=== PATIENT | male | born 1955 | race Caucasian/White ===

== ENCOUNTER 2018-07-17 07:24 | Emergency (ER) | payer BC ==
[2018-07-17 08:02] LABS: Absolute Lymphocytes (CBC) 0.6 K/uL (0.7-4.9); Absolute Monocytes 0.4 K/uL (0.1-1.3); Absolute Neutrophil 3.4 K/uL (1.8-8.0); Basophils % 1.2 % (0-1.3); Eosinophils % 3.8 % (0-4.4); Hematocrit 45.6 % (39.6-49.0); Lymphocytes % 12.7 % (15.3-44.8); MCH 32.5 pg (27.0-35.0); MCV 91.8 fL (80-100); MPV 8.6 fL (7.6-11.3); Monocytes % 8.7 % (3.3-12.3); RBC Red Blood Cell Count 4.97 M/uL (4.33-5.43)
[2018-07-17 08:14] LABS: BUN Blood Urea Nitrogen 14 mg/dL (7-18); Bicarbonate 29 mmol/L (21-32); Glucose Level 116 mg/dL (74-106); NT PRO-BNP 26 pg/mL (<125); Sodium Level 141 mmol/L (136-145); Troponin (Emerg Dept Use Only) < 0.02 ng/mL (0.0-0.045)
--- NOTE | 2018-07-17 08:30 | RAD REPORT ---
EXAM DESCRIPTION: RAD - Chest Single View - 07/17/2018 8:00 am CLINICAL HISTORY: Palpitations, diaphoretic COMPARISON: January 2014 portable chest TECHNIQUE: AP portable chest image was obtained 0742 hours . FINDINGS: Lungs are clear. Heart and vasculature are normal. No measurable pleural effusion and no p neumothorax. No acute bony abnormality seen. No acute aortic findings suspected. IMPRESSION: No acute cardiopulmonary process. No significant change from 2014 imaging.
--- NOTE | 2018-07-17 08:30 | RAD REPORT ---
EXAM DESCRIPTION: CT - Head Brain Wo Cont - 07/17/2018 8:07 am CLINICAL HISTORY: Diaphoretic, hypertensive, altered mental status COMPARISON: None. TECHNIQUE: Axial 5 mm thick images of the head were obtained without IV contrast. All CT scans are performed using dose optimization technique as appropriate and may include automated exposure control or mA/KV adjustment according to patient size. FINDINGS: No intracranial hemorrhage is present. No acute infarction changes seen. No abnormal extra -axial fluid collections. Ventricles are normal. There is a 2.5 centimeter round homogeneous hyperdense mass abutting the posterior falx and the dura overlying the left parietal lobe. No associated calcification. There is minimal mass effect on the ad jacent brain parenchyma. No edema in the left parietal lobe appreciated on CT imaging. No prior imagi ng is available. Most likely etiology is a benign meningioma. Mastoid air cells and visualized portions of the paranasal sinuses are clear. No acute bony findings. IMPRESSION: No intracranial hemorrhage. No cerebral edema or acute cortical based infarction. A 2.5 centimeter round dural abutting mass is present adjacent to the left parietal lobe. Meningioma is the most likely etiology and is probably unrelated to the acute clinical presentation. No emergent intracranial finding is evident. Follow-up outpatient contrast MRI study could be perform ed for full characterization.
--- NOTE | 2018-07-17 10:12 | EKG ---
Test Date: 2018-07-17 Test Time: 07:55:30 Cab Driver: AMANUEL MEASUREMENT RESULTS: Intervals: Rate: 63 PA: 172 QRSD: 84 QT: 390 QTc: 399 [place]: P: 35 PA: 172 QRS: 16 T: 40 INTERPRETIVE STATEMENTS: Normal sinus rhythm Normal ECG Compared to ECG 08/19/2014 10:05:54 No significant changes Electronically Signed On 07-17-18 10:11:45 [employer] by Chaitanya Forrester
--- NOTE | 2018-07-17 10:52 | RAD REPORT ---
EXAM DESCRIPTION: MRI - Brain W/Wo Cont - 07/17/2018 10:08 am CLINICAL HISTORY: Brain mass COMPARISON: July [address] TECHNIQUE: Axial, sagittal, and coronal magnetic images of the brain were obtained. 19 cc MultiHance administered intravenously FINDINGS: A 28 millimeter intensely enhancing mass abuts the posterior falx and left occipital/parie darcy convexity. There is enhancement of the the suspicious adjacent dura. The mass has iso to high sig nal on T2 weighted sequences. No surrounding edema is seen The ventricles are normal in caliber. Diffusion-weighted sequences do not demonstrate evidence of an acute infarction. No abnormal enhancement within the brain is seen. An extra-axial fluid collection is not noted. Fluid within the sinuses/mastoids is not seen. A mucus retention cyst is present within the right max illary sinus IMPRESSION: 28 millimeter which abuts the posterior falx and left cerebrum has the appearance of a meningioma. Surrounding edema is not seen
--- NOTE | 2018-07-17 11:16 | ER ---
Nurse's Notes [facility] Name: Chance Tian Age: 63 yrs Sex: Male : 1955 Arrival Date: 07/17/2018 Time: 07:27 Bed 8 Private MD: Diagnosis: Hypertension;Meningioma Presentation: 07/17 07:36 Presenting complaint: Patient states: "I became diaphoretic while eating breakfast, hb then I started to feel like I was going to pop out of my skin." Denies pain. Transition of care: patient was not received from another setting of care. Onset of symptoms was July 17, 2018. Risk Assessment: Do you want to hurt yourself or someone else? Patient reports no desire to harm self or others. Initial Sepsis Screen: Does the patient meet any 2 criteria? Yes Does the patient have a suspected source of infection? No. Patient's initial sepsis screen is negative. Care prior to arrival: None. 07:36 Acuity: MINE 3 hb 07:36 Method Of Arrival: Ambulatory hb Historical: - Allergies: 07:35 No Known Allergies; sg - PSHx: 07:35 Hernia repair; sg - Immunization history:: Adult Immunizations up to date. - Family history:: not pertinent. - Social history:: Smoking status: Patient/guardian denies using tobacco. - Ebola Screening: : No symptoms or risks identified at this time. - Hospitalizations: : No recent hospitalization is reported. Screenin:38 Abuse screen: Denies threats or abuse. Denies injuries from another. Nutritional hb screening: No deficits noted. Tuberculosis screening: No symptoms or risk factors identified. Fall Risk None identified. Assessment: 07:40 General: Appears in no apparent distress. Behavior is calm, cooperative. Pain: Denies hb pain. Neuro: Level of Consciousness is awake, alert, obeys commands, Oriented to person, place, time, situation. Cardiovascular: Heart tones S1 S2 present Capillary refill < 3 seconds Patient's skin is warm and dry. Respiratory: Airway is patent Trachea midline Respiratory effort is even, unlabored, Respiratory pattern is regular, symmetrical, Breath sounds are clear bilaterally. GI: No signs and/or symptoms were reported involving the gastrointestinal system. : No signs and/or symptoms were reported regarding the genitourinary system. EENT: No signs and/or symptoms were reported regarding the EENT system. Derm: Skin is intact, is healthy with good turgor, Skin is pink, warm \\T\\ dry. Musculoskeletal: No signs and/or symptoms reported regarding the musculoskeletal system. 08:30 Reassessment: Patient appears in no apparent distress at this time. Patient and/or hb family updated on plan of care and expected duration. Pain level reassessed. Patient is alert, oriented x 3, equal unlabored respirations, skin warm/dry/pink. 09:30 Reassessment: Patient appears in no apparent distress at this time. No changes from hb previously documented assessment. 10:30 Reassessment: Patient appears in no apparent distress at this time. No changes from hb previously documented assessment. Patient and/or family updated on plan of care and expected duration. Pain level reassessed. Patient is alert, oriented x 3, equal unlabored respirations, skin warm/dry/pink. 11:15 Reassessment: Patient appears in no apparent distress at this time. No changes from hb previously documented assessment. Patient and/or family updated on plan of care and expected duration. Pain level reassessed. Patient is alert, oriented x 3, equal unlabored respirations, skin warm/dry/pink. Vital Signs: 07:37 BP 183 / 109; Pulse 68; Resp 16; Temp 97.8; Pulse Ox 100% on R/A; Pain 0/10; hb 08:30 BP 111 / 82; Pulse 65; Resp 16; Pulse Ox 100% on R/A; hb 10:00 BP 118 / 78; Pulse 64; Resp 15; Pulse Ox 100% on R/A; hb 11:00 BP 126 / 76; Pulse 66; Resp 16; Pulse Ox 100% on R/A; Pain 0/10; hb ED Course: 07:27 Patient arrived in ED. hb 07:27 Barber Yoder MD is Attending Physician. rn 07:37 Triage completed. hb 07:38 Arm band placed on right wrist. hb 07:43 Initial lab(s) drawn, by me, sent to lab. Inserted saline lock: 20 gauge in right dh3 antecubital area, using aseptic technique. Blood collected. 07:45 Patient has correct armband on for positive identification. Placed in gown. Bed in low hb position. Call light in reach. Side rails up X 1. 07:55 EKG done, by benefits technician. reviewed by Barber Yoder MD. at1 07:56 X-ray completed. Portable x-ray completed in exam room. Patient tolerated procedure jb2 well. 07:57 XRAY Chest (1 view) In Process Unspecified. EDMS 08:[address] via stretcher. jj2 08:06 CT completed. Patient tolerated procedure well. Patient moved back from CT. jj2 08:07 CT Head Brain wo Cont In Process Unspecified. EDMS 08:35 Nicol Cole, RN is Primary Nurse. hb 08:52 RN/BAGGAGE CLERK escort patient out of department to MRI. sg 09:03 Patient moved to MRI via wheelchair. lc 09:48 Patient moved back from MRI. lc 11:15 Edison Berry MD is Referral Physician. rn 11:32 No provider procedures requiring assistance completed. IV discontinued, intact, hb bleeding controlled, No redness/swelling at site. Pressure dressing applied. Administered Medications: 07:45 Drug: cloNIDine 0.2 mg Route: PO; sg 08:30 Follow up: Response: No adverse reaction; Blood pressure is lowered hb Point of Care Testing: Blood Glucose: 07:37 Blood Glucose: 101 mg/dL; hb Ranges: Outcome: 11:15 Discharge ordered by MD. rn 11:32 Discharged to home ambulatory, with significant other. hb 11:32 Condition: stable 11:32 Discharge instructions given to patient, Instructed on discharge instructions, follow up and referral plans. medication usage, Demonstrated understanding of instructions, follow-up care, medications. 11:33 Patient left the ED. hb Signatures: Dispatcher [employer] EDRI Noam Christina, RN RN Neal Fair jb2 Alyssa Guidry Justin jj2 Barber Yoder MD MD rn Gonzales, Amanda, interactive project manager EKG Tat1 Nicol Cole RN RN Nely Quintero 3
--- NOTE | 2018-07-17 11:17 | EDPHYS ---
Physician Documentation [facility] Name: Chance Tian Age: 63 yrs Sex: Male : 1955 Arrival Date: 07/17/2018 Time: 07:27 Bed 8 Private MD: ED Physician Barber Yoder HPI: 07/17 07:50 This 63 yrs old Male presents to ER via Ambulatory with complaints of Doesn't rn Feel Right. 07:50 Reports high blood pressure for 2 weeks, has been feeling flush lately, this AM felt rn flushed, diaphoresis, BP was high, came in for evaluation, feels better now but "doesn't feel right". . 07:51 Onset: The symptoms/episode began/occurred this morning. Severity of symptoms: At their rn worst the symptoms were moderate in the emergency department the symptoms have improved. The patient has experienced similar episodes in the past. The patient has been recently seen by a physician:. Historical: - Allergies: 07:35 No Known Allergies; sg - PSHx: 07:35 Hernia repair; sg - Immunization history:: Adult Immunizations up to date. - Family history:: not pertinent. - Social history:: Smoking status: Patient/guardian denies using tobacco. - Ebola Screening: : No symptoms or risks identified at this time. - Hospitalizations: : No recent hospitalization is reported. ROS: 07:51 Constitutional: Negative for fever, chills, and weight loss, Eyes: Negative for injury, rn pain, redness, and discharge, Neck: Negative for injury, pain, and swelling, Cardiovascular: Negative for chest pain, and edema, Respiratory: Negative for shortness of breath, cough, wheezing, and pleuritic chest pain, Abdomen/GI: Negative for abdominal pain, nausea, vomiting, diarrhea, and constipation, MS/Extremity: Negative for injury and deformity, Skin: Negative for injury, rash, and discoloration, Neuro: Negative for weakness, numbness, tingling, and seizure. Exam: 07:51 Constitutional: This is a well developed, well nourished patient who is awake, alert, rn and in no acute distress. Sitting on edge of bed with feet on ground. Head/Face: Normocephalic, atraumatic. Eyes: Pupils equal round and reactive to light, extra-ocular motions intact. Cardiovascular: Regular rate and rhythm with a normal S1 and S2. No gallops, murmurs, or rubs.No pulse deficits. Respiratory: Lungs have equal breath sounds bilaterally, clear to auscultation. No increased work of breathing, no retractions or nasal flaring. Skin: Warm, dry MS/ Extremity: Pulses equal, no cyanosis. Neurovascular intact. Neuro: Awake and alert, GCS 15, oriented to person, place, time, and situation. Cranial nerves II-XII grossly intact. Motor strength 5/5 in all extremities. Sensory grossly intact. Cerebellar exam normal. 07:58 ECG was reviewed by the Attending Physician. rn Vital Signs: 07:37 BP 183 / 109; Pulse 68; Resp 16; Temp 97.8; Pulse Ox 100% on R/A; Pain 0/10; hb 08:30 BP 111 / 82; Pulse 65; Resp 16; Pulse Ox 100% on R/A; hb 10:00 BP 118 / 78; Pulse 64; Resp 15; Pulse Ox 100% on R/A; hb 11:00 BP 126 / 76; Pulse 66; Resp 16; Pulse Ox 100% on R/A; Pain 0/10; hb MDM: 07:27 Patient medically screened. rn 11:14 Differential Diagnosis brain mass, hypertension. Data reviewed: vital signs, nurses rn notes, lab test result(s), EKG, radiologic studies, and as a result, I will discharge patient. Counseling: I had a detailed discussion with the patient and/or guardian regarding: the historical points, exam findings, and any diagnostic results supporting the discharge/admit diagnosis, lab results, radiology results, the need for outpatient follow up, to return to the emergency department if symptoms worsen or persist or if there are any questions or concerns that arise at home. Response to treatment: the patient's symptoms have markedly improved after treatment, the patient's condition has returned to base line, the patient is now symptom free, and as a result, I will discharge patient. Special discussion: I discussed with the patient/guardian in detail that at this point there is no indication for admission to the hospital. It is understood, however, that if the symptoms persist or worsen the patient needs to return immediately for re-evaluation. Based on the history and exam findings, there is no indication for further emergent testing or inpatient evaluation. I discussed with the patient/guardian the need to see the neurologist for further evaluation of the symptoms. ED course: Pt with meningioma, not acute finding, MRI confirms, symptoms recently more from uncontrolled BP, recommend BP diary and pcp f/u for further management, also, neuro f/u for brain mass.. 07/17 07:35 Order name: Basic Metabolic Panel; Complete Time: 08:19 rn 07/17 07:35 Order name: CBC with Diff; Complete Time: 08:19 rn 07/17 07:35 Order name: NT PRO-BNP; Complete Time: 08:19 rn 07/17 07:35 Order name: Troponin (emerg Dept Use Only); Complete Time: 08:19 rn 07/17 07:35 Order name: XRAY Chest (1 view); Complete Time: 10:55 rn 07/17 07:37 Order name: Glucose, Ancillary Testing; Complete Time: 08:13 EDMS 07/17 07:35 Order name: EKG; Complete Time: 07:36 rn 07/17 07:35 Order name: Cardiac monitoring; Complete Time: 07:39 rn 07/17 07:35 Order name: EKG - Nurse/Tech; Complete Time: 10:30 rn 05 07:35 Order name: IV Saline Lock; Complete Time: 07:54 rn 05 07:51 Order name: CT Head Brain wo Cont; Complete Time: 08:32 rn 05 09:03 Order name: Brain W/Wo Cont; Complete Time: 10:55 EDMS 05 07:35 Order name: Labs collected and sent; Complete Time: 07:54 rn 05 07:35 Order name: O2 Per Protocol; Complete Time: 07:39 rn 07/17 07:35 Order name: O2 Sat Monitoring; Complete Time: 07:39 rn EC:58 Rate is 63 beats/min. Rhythm is regular. QRS [place] is Normal. AR interval is normal. QRS rn interval is normal. QT interval is normal. No Q waves. T waves are Normal. No ST changes noted. Clinical impression: Normal ECG. Administered Medications: 07:45 Drug: cloNIDine 0.2 mg Route: PO; sg 08:30 Follow up: Response: No adverse reaction; Blood pressure is lowered hb Point of Care Testing: Blood Glucose: 07:37 Blood Glucose: 101 mg/dL; hb Ranges: Critical Glucose Levels:Adult <50 mg/dl or >400 mg/dl <40 mg/dl or >180 mg/dl Disposition: 07/17/18 11:15 Discharged to Home. Impression: Hypertension, Meningioma. - Condition is Stable. - Discharge Instructions: Form - Blood Pressure Record Sheet, Meningioma. - Medication Reconciliation Form, Thank You Letter, Antibiotic Education, Prescription Opioid Use form. - Follow up: Edison Berry MD; When: As needed; Reason: Recheck today's complaints, Re-evaluation by your physician. - Problem is new. - Symptoms have improved. Signatures: Dispatcher [employer] [facility] Noam Christina RN RN sg Barber Yoder MD MD rn Baxter, Heather, RN RN hb Corrections: (The following items were deleted from the chart) 09:03 08:46 Brain With Cont+MRI.RAD.BRZ ordered. [facility] 11:33 11:15 07/17/2018 11:15 Discharged to Home. Impression: Hypertension; Meningioma. hb Condition is Stable. Forms are Medication Reconciliation Form, Thank You Letter, Antibiotic Education, Prescription Opioid Use. Follow up: Edison Berry; When: As needed; Reason: Recheck today's complaints, Re-evaluation by your physician. Problem is new. Symptoms have improved. rn
[2018-07-17 11:53] VITALS: TEMP 97.8; O2SAT 100
[2018-07-17 11:58] VITALS: BP 126/76
== END 2018-07-17 11:33 | disposition home or self-care (01) ==
LOC: ER 07:24
DX: D32.0 Benign neoplasm of cerebral meninges (principal)
CPT/HCPCS: 36415; 70450; 70553; 71045; 80048; 82962; 83880; 84484; 85025; 93005; A9577